=== PATIENT | female | born 1990 | race Caucasian/White ===

== ENCOUNTER 2016-07-13 22:16 | Emergency (ER) ==
[2016-07-13 22:29] VITALS: BP 137/72; TEMP 97.7; BMI 31.9
[2016-07-13] MEDS ORDERED: TORADOL IM STA (22:38)
--- NOTE | 2016-07-13 22:41 | ED.PDOC ---
General ED Provider: Dr. SUKHI KERR Chief Complaint: Ankle Pain/Injury Stated Complaint: tripped over the steps at work, injured right ankle, it is swollena nd hurts to walk Time Seen by Physician: 22:38 Mode of Arrival: Wheelchair Information Source: Patient Primary Care Provider: ANGIE RIOS Nursing and Triage Documentation Reviewed and Agree: Yes Musculoskeletal Complaint Exam - Ankle/Foot Complaint/Exam Location of Injury: Reports: Right, Ankle Mechanism of Injury: Reports: Trauma Symptoms Are: Reports: Still present Onset of Pain: Reports: Immediate Initial Severity: Moderate Current Severity: Moderate Location: Reports: Discrete Character: Reports: Aching, Throbbing Alleviating: Reports: Rest Aggravating: Reports: Movement, Weight bearing, Prolonged standing Able to Bear Weight: No Associated Signs and Symptoms: Reports: Swelling. Denies: Redness, Bruising, Fever, Weakness, Numbness, Tingling Gout Risk Factors: Reports: None Related Surgical History: Reports: None Lower Extremity Findings: Present: Swelling, Ecchymosis, Abnormal contour Tenderness: Present: Medial malleolus, Lateral malleolus Limited Range of Motion: Present: Inversion, Eversion, Dorsiflexion, Plantarflexion Differential Diagnosis: Closed Fracture, Sprain Review of Systems - Review Of Systems Constitutional: Reports: No symptoms Eyes: Reports: No symptoms Ears, Nose, Mouth, Throat: Reports: No symptoms Respiratory: Reports: No symptoms Cardiac: Reports: No symptoms GI: Reports: No symptoms : Reports: No symptoms Musculoskeletal: Reports: Joint pain, Joint swelling Skin: Reports: No symptoms Neurological: Reports: No symptoms Endocrine: Reports: No symptoms Hematologic/Lymphatic: Reports: No symptoms All Other Systems: Reviewed and Negative Past Medical History - Past Medical History Previously Healthy: Yes Endocrine: Reports: None Cardiovascular: Reports: None Respiratory: Reports: None Hematological: Reports: None Gastrointestinal: Reports: None Genitourinary: Reports: None Neuro/Psych: Reports: None Musculoskeletal: Reports: None Cancer: Reports: None Last Menstrual Period: 06/27/16 - Surgical History General Surgical History: Reports: None - Family History Family History: Reports: None - Social History Smoking Status: Current every day smoker, Light tobacco smoker Smoking Cessation Counseling Time: > 3 min - 10 min Hx Substance Use: No Alcohol Screening: None - Immunizations Tetanus Shot up to Date: Yes Physical Exam - Physical Exam Appearance: Well-appearing, Obese Pain Distress: Mild Eyes: MAIKOL, EOMI, Conjunctiva clear ENT: Ears normal, Nose normal, Oropharynx normal Respiratory: Airway patent, Breath sounds clear, Breath sounds equal, Respirations nonlabored Cardiovascular: RRR, Pulses normal, No rub, No murmur GI/: Soft, Nontender, No masses, Bowel sounds normal, No Organomegaly Musculoskeletal: ROM intact, No calf tenderness, Limited ROM, Edema Skin: Warm, Dry, Normal color Neurological: Sensation intact, Motor intact, Reflexes intact, Cranial nerves intact, Alert, Oriented Psychiatric: Affect appropriate, Mood appropriate Interpretation - Radiology Interpretation Radiology Interpretation By: Radiologist Radiology Results: Negative Critical Care Note - Critical Care Note Total Time (mins): 0 Course - Course Orders, Labs, Meds: Orders Category Date Time Status Ketorolac Tromethamine [Toradol] MEDS 07/13/16 22:38 Discontinued 60 mg IM ONCE STA ANKLE, RIGHT MIN 3 VIEWS Stat RADS 07/13/16 22:38 Completed Medications Discontinued Medications Generic Name Dose Route Start Last Admin Trade Name Freq PRN Reason Stop Dose Admin Ketorolac Tromethamine 60 mg 07/13/16 22:38 07/13/16 23:08 Toradol IM 07/13/16 22:39 60 mg ONCE STA Administration Vital Signs: Temp Pulse Resp BP Pulse Ox 07/13/16 22:20 97.7 F 119 H 20 137/72 98 Departure - Departure Time of Disposition: 00:20 Disposition: HOME SELF-CARE Discharge Problem: Ankle pain Ankle sprain Qualifiers: Encounter type: initial encounter Involved ligament of ankle: other ligament Laterality: right Qualifier Code: (S93.491A) Sprain of other ligament of right ankle, initial encounter Instructions: Ankle Sprain (ED) Condition: Stable Pt referred to PMD for follow-up: Yes Additional Instructions: rest if the pain not better may need MRI Prescriptions: Hydrocodone/Acetaminophen [[place] 5-325 Tablet] 1 tab PO TID PRN #12 tablet PRN Reason: PAIN Allergies/Adverse Reactions: Allergies sulfamethoxazole [From Bactrim] Adverse Reaction (Verified 07/13/16 22:30) trimethoprim [From Bactrim] Adverse Reaction (Verified 07/13/16 22:30) Home Medications: Ambulatory Orders Hydrocodone/Acetaminophen [[place] 5-325 Tablet] 1 tab PO TID PRN #12 tablet 07/13 Disposition Discussed With: Patient
--- NOTE | 2016-07-13 23:54 | DI ---
EXAM: Right ankle, three views, 07/13/2016 HISTORY: Injury COMPARISON: None FINDINGS / IMPRESSION: Normal anatomic alignment is maintained. The osseous structures appear inta ct. There is no evidence of fracture or dislocation. Lateral soft tissue swelling. Pes cavus configuration of the foot.
== END 2016-07-14 00:28 | disposition home or self-care (01) ==
LOC: ED 22:16
DX: S93.491A Sprain of other ligament of right ankle, initial encounter (principal); W01.0XXA Fall on same level from slipping, tripping and stumbling without subsequent striking against object, initial encounter; F17.210 Nicotine dependence, cigarettes, uncomplicated
CPT/HCPCS: 96372; 99283

== ENCOUNTER 2016-07-20 12:27 | Emergency (ER) ==
[2016-07-20 12:27] VITALS: BMI 31.9
[2016-07-20 12:33] VITALS: BP 161/92; TEMP 99
[2016-07-20] MEDS ORDERED: NORCO 10-325 PO STA (13:48)
[2016-07-20 14:19] LABS: SERUM PREGNANCY INTERNAL QC INTERNAL QC VALID
--- NOTE | 2016-07-20 15:16 | ED.PDOC ---
[id number]: ankle and pain right sided Time Seen by Physician: 12:30 (injury 1 week ago report was noted by ric) Mode of Arrival: Wheelchair Information Source: Patient Exam Limitations: No limitations Primary Care Provider: ANGIE RIOS Nursing and Triage Documentation Reviewed and Agree: Yes (still has pain and brusing not better ) Musculoskeletal Complaint Exam - Ankle/Foot Complaint/Exam Location of Injury: Reports: Right, Ankle, Foot Mechanism of Injury: Reports: Trauma ( 1 week ago not since) Onset/Duration: 7 dayson crutches Symptoms Are: Reports: Still present Onset of Pain: Reports: Days Current Severity: Moderate Character: Reports: Throbbing, Spasmodic, Stiffness Alleviating: Reports: Rest, Position Aggravating: Reports: Movement, Weight bearing Able to Bear Weight: Yes Associated Signs and Symptoms: Denies: Swelling, Redness, Bruising, Fever, Weakness, Numbness, Tingling Related History: Reports: Similar episode Gout Risk Factors: Reports: None Related Surgical History: Reports: None Achilles Tendon Abnormality: No Tenderness: Present: Heel, Midfoot, Metatarsals, Digits Review of Systems - Review Of Systems Constitutional: Reports: No symptoms Eyes: Reports: No symptoms Ears, Nose, Mouth, Throat: Reports: No symptoms Respiratory: Reports: No symptoms Cardiac: Reports: No symptoms GI: Reports: No symptoms : Reports: No symptoms Musculoskeletal: Reports: Joint pain (foot and ankleright sided ) Skin: Reports: No symptoms Neurological: Reports: No symptoms Endocrine: Reports: No symptoms Hematologic/Lymphatic: Reports: No symptoms All Other Systems: Reviewed and Negative Past Medical History - Past Medical History Previously Healthy: Yes Endocrine: Reports: None Cardiovascular: Reports: None Respiratory: Reports: None Hematological: Reports: None Gastrointestinal: Reports: None Genitourinary: Reports: None Neuro/Psych: Reports: None Musculoskeletal: Reports: None Cancer: Reports: None Last Menstrual Period: now - Surgical History General Surgical History: Reports: None - Family History Family History: Reports: None - Social History Smoking Status: Current every day smoker, Light tobacco smoker Hx Substance Use: No Alcohol Screening: None Physical Exam - Physical Exam Appearance: Well-appearing, No pain distress, Well-nourished Eyes: MAIKOL, EOMI, Conjunctiva clear ENT: Ears normal, Nose normal, Oropharynx normal Respiratory: Airway patent, Breath sounds clear, Breath sounds equal, Respirations nonlabored Cardiovascular: RRR, Pulses normal, No rub, No murmur GI/: Soft, Nontender, No masses, Bowel sounds normal, No Organomegaly Musculoskeletal: ROM intact, No edema, No calf tenderness, Limited ROM (right foot , the foot is brused and tender ) Skin: Warm, Dry, Normal color Neurological: Sensation intact, Motor intact, Reflexes intact, Cranial nerves intact, Alert, Oriented Psychiatric: Affect appropriate, Mood appropriate Critical Care Note - Critical Care Note Total Time (mins): 0 Course - Course Orders, Labs, Meds: Lab Review 07/20/16 13:50 Serum , Qual Negative Orders Category Date Time Status SERUM Stat LAB 07/20/16 13:50 Completed Hydrocodone Bit/Acetaminophen [[place] 10-325] MEDS 07/20/16 13:48 Discontinued 1 tab PO ONCE STA CT ANKLE RIGHT WO CONTRAST Stat RADS 07/20/16 13:[address] FOOT RIGHT WITHOUT CONTRAST Stat RADS 07/20/16 13:45 Completed Medications Discontinued Medications Generic Name Dose Route Start Last Admin Trade Name Perla PRN Reason Stop Dose Admin Acetaminophen/Hydrocodone Bitart 1 tab 07/20/16 13:48 07/20/16 13:53 [place] 10-325 PO 07/20/16 13:49 Not Given ONCE STA Vital Signs: Temp Pulse Resp BP Pulse Ox 07/20/16 12:27 99.0 F 130 H 20 161/92 H 98 Departure - Departure Time of Disposition: 16:00 Disposition: HOME SELF-CARE Discharge Problem: Ankle pain Instructions: Contusion in Adults (ED) Condition: Good Pt referred to PMD for follow-up: No Additional Instructions: Please call your Family Physician as soon as possible to schedule a follow-up appointment. you must obtain an MRI OF THIS INJURY I THINK THERE MAY BE SOME LIGAMENT TORE UP IN YOUR ANKLE/FOOT [place] 10/325 mg three times a day for 4 days #12 Allergies/Adverse Reactions: Allergies sulfamethoxazole [From Bactrim] Adverse Reaction (Verified 07/20/16 12:33) trimethoprim [From Bactrim] Adverse Reaction (Verified 07/20/16 12:33) Home Medications: Ambulatory Orders 1 [No Reported Medications] 07/20/16
--- NOTE | 2016-07-20 15:34 | CT ---
EXAM: CT right ankle without contrast. CT right foot without contrast HISTORY: Recent right ankle sprain with pain and swelling. Negative x-rays. Subsequent evaluation COMPARISON: Right ankle radiograph 07/13/2016 TECHNIQUE: Multiple axial images of the right foot and ankle were obtained without intravenous cont rast. Images were reformatted in the sagittal and coronal planes. FINDINGS: Bone mineralization is normal. No fracture or dislocation identified. Joint spaces are maintained. No erosive changes detected. Tiny spurs are present off the calcaneus at the Achilles tendon insertion and plantar aponeurosis. Subcutaneous edema is seen about the ankle and dorsal asp ect of the foot. No drainable fluid collection identified. IMPRESSION: Soft tissue swelling without fracture or dislocation.
== END 2016-07-20 15:50 | disposition home or self-care (01) ==
LOC: ED 12:27
DX: M25.571 Pain in right ankle and joints of right foot (principal); S90.31XD Contusion of right foot, subsequent encounter; F17.210 Nicotine dependence, cigarettes, uncomplicated
CPT/HCPCS: 36415; 84703; 99283